=== PATIENT | female | born 1960 | race Caucasian/White ===

== ENCOUNTER 2024-08-02 22:02 | Emergency (ER) | payer BC, OTHER ==
[2024-08-02] MEDS ORDERED: KETOROLAC 30 MG/ML INJ ONE (22:23)
[2024-08-02] MEDS ORDERED: ONDANSETRON 4 MG/2 ML VIAL ONE (22:23)
[2024-08-02] MEDS ORDERED: NA CHLORIDE 0.9% 1,000 ML ONE (22:24)
[2024-08-02] MEDS ORDERED: MORPHINE 4 MG/ML SYR ONE (22:24)
--- NOTE | 2024-08-02 22:36 | RAD REPORT ---
EXAMINATION: CT HEAD WITHOUT CONTRAST CT CERVICAL SPINE WITHOUT CONTRAST CLINICAL INDICATION: Female, 64 years old. TRAUMA TECHNIQUE: Axial CT images from the skull base to the vertex without intravenous contrast. Axial CT i mages through the cervical spine were obtained without intravenous contrast. Sagittal and coronal reformatted images were created from the data set. Coronal and sagittal reformatted images were creat ed from the data set. One or more of the following dose reduction techniques were used: Automated exposure control, adjustment of the mA and/or kV according to patient size, and/or iterative reconstr uction. Unless otherwise specified, incidental findings do not require dedicated imaging follow-up. [id number]. COMPARISON: No prior exam. FINDINGS: Head: INTRACRANIAL: No acute intracranial hemorrhage. No hydrocephalus. No mass effect or midline shift. Mi ld chronic small vessel ischemic changes.Mild cerebral atrophy. VASCULATURE: No visualized abnormalities in the arteries or dural venous sinuses. SCALP/SKULL: No significant soft tissue or osseous abnormalities. SINUSES: The visualized paranasal sinuses and mastoid air cells are predominantly clear. Cervical spine: ALIGNMENT: Reversal the normal cervical lordosis. BONE: Vertebral body heights are maintained. No aggressive osseous lesions. DEGENERATIVE CHANGES: Multilevel cervical spondylosis with varying degrees of neural foraminal narrow ing. This is most pronounced on the right at C5-6 and C6-7 and on the left at C4-5. SOFT TISSUE: No significant abnormalities in the soft tissue of the neck. The visualized lung apices are clear. IMPRESSION: No acute intracranial abnormality. No acute fracture or traumatic malalignment of the cervical spine.
--- NOTE | 2024-08-02 22:41 | RAD REPORT ---
EXAM: CT CHEST, ABDOMEN AND PELVIS WITHOUT CONTRAST CLINICAL INDICATION: Female, 64 years old left shoulder pain TECHNIQUE: CT chest, abdomen and pelvis was performed, without IV contrast, as per department protoco l. Axial, sagittal and coronal reconstructions were obtained. One or more of the following dose reduction techniques were used: Automated exposure control, adjustment of the mA and/or kV according to the patient size, and/or iterative reconstruction. Unless otherwise specified, incidental findings do not require dedicated imaging follow-up. [id number]. COMPARISON: No prior exam. FINDINGS: The lack of intravenous contrast limits the sensitivity of this exam for evaluation of solid visceral organs, vascular structures, and retroperitoneum. Chest: LOWER NECK: Visualized thyroid gland and soft tissues are normal. LUNGS AND AIRWAYS: Calcified left lower lobe pulmonary nodules.No suspicious and/or stable pulmonary nodules. PLEURA: No pleural effusion. No pneumothorax. Hemidiaphragms are normally positioned. MEDIASTINUM AND LYMPH NODES: No mediastinal mass or fluid collection. Normal size mediastinal, hilar, and axillary lymph nodes. Small hiatal hernia. THORACIC AORTA: No thoracic aortic aneurysm. PULMONARY ARTERIES: Caliber is within normal limits. HEART: Normal heart size. Coronary arterial calcifications are present.No significant pericardial eff usion. Abdomen/Pelvis UPPER GI: No significant abnormality. LIVER: No significant focal abnormality. GALLBLADDER/BILE DUCTS: No biliary ductal dilatation.? PANCREAS: No mass, ductal dilation, or amie-pancreatic fluid. SPLEEN: Unremarkable. ADRENALS: No adrenal masses. KIDNEYS AND URETERS: No hydronephrosis.No suspicious renal mass. ABDOMINAL AORTA AND OTHER VESSELS: Normal caliber aorta and IVC. PERITONEUM: No abnormal free fluid. No free air. LYMPH NODES: No pathologic lymphadenopathy. ABDOMINAL WALL: Unremarkable SMALL BOWEL/COLON: Small bowel has normal course and caliber. No colonic wall thickening or pericolon ic inflammatory changes. Severe diverticulosis without diverticulitis. URINARY BLADDER: Underdistended but grossly unremarkable. REPRODUCTIVE ORGANS: No pathologic process. MUSCULOSKELETAL: Mildly comminuted left proximal humerus fracture. This involves the surgical neck an d both greater and lesser tuberosity. No other evidence of significant trauma is identified. ADDITIONAL FINDINGS: None. IMPRESSION: Mildly comminuted left proximal humerus fracture. No other evidence of significant trauma identified. .
--- NOTE | 2024-08-03 00:04 | ER ---
Nurse's Notes [facility] Name: Keira Adam Age: 64 yrs Sex: Female : 1960 Arrival Date: 08/02/2024 Time: 22:02 Bed 20 Private MD: Diagnosis: Fracture of upper end of humerus;Acute left proximal humerus fracture through surgical neck of the humerus;Acute fall at home Presentation: 08/02 22:06 Chief complaint: EMS states: bystanders report pt was smoking out in the parking lot of a hotel when she fell from a standing position. C/o L upper arm/ shoulder pain. +etoh. Coronavirus screen: Client denies travel out of the [place] in the last 14 days. Ebola Screen: Patient denies exposure to infectious person. Patient denies travel to an Ebola-affected area in the 21 days before illness onset. Initial Sepsis Screen: Does the patient meet any 2 criteria? No. Patient's initial sepsis screen is negative. Does the patient have a suspected source of infection? No. Patient's initial sepsis screen is negative. Risk Assessment: Do you want to hurt yourself or someone else? Patient reports no desire to harm self or others. Onset of symptoms was August 02, 2024. Care prior to arrival: IV initiated. 20 GA, in the right antecubital area. 22:06 Method Of Arrival: EMS: [facility] 22:06 Acuity: JAMES 3 ss Historical: - Allergies: 22:09 No Known Allergies; ss - Home Meds: 22:09 None [Active]; ss - PMHx: 22:09 None; ss - PSHx: 22:09 "twisted bowels fixed by Dr. Kauffman"; ss - Infectious Disease History:: Denies. - Social history:: Smoking status: Patient reports the use of cigarette tobacco products, smokes one-half pack cigarettes per day. - Family history:: not pertinent. Screenin:10 [facility] [place] ED Fall Risk Assessment (Adult) History of falling in the last 3 months, jb4 including since admission Yes- single mechanical fall (1 pt) Confusion or Disorientation No (0 pts) Intoxicated or Sedated Yes (3 pts) Impaired Gait Yes (1 pt) Mobility Assist Device Used No (0 pt) Altered Elimination No (0 pt) Score/Fall Risk Level 3 or more points = High Risk Oriented to surroundings, Maintained a safe environment. Abuse screen: Denies threats or abuse. Nutritional screening: No deficits noted. Tuberculosis screening: No symptoms or risk factors identified. Assessment: 22:10 General: Appears in no apparent distress. uncomfortable, Behavior is calm, cooperative, jb4 appropriate for age. Pain: Complains of pain in Left shoulder Pain does not radiate. Pain currently is 10 out of 10 on a pain scale. Neuro: Level of Consciousness is awake, alert, obeys commands, Oriented to person, place, time, situation. Cardiovascular: Patient's skin is warm and dry. Respiratory: Airway is patent Respiratory effort is even, unlabored, Respiratory pattern is regular, symmetrical. GI: No signs and/or symptoms were reported involving the gastrointestinal system. : No signs and/or symptoms were reported regarding the genitourinary system. EENT: No signs and/or symptoms were reported regarding the EENT system. Derm: Skin is pink, warm \\T\\ dry. Musculoskeletal: Circulation, motion, and sensation intact. Range of motion: limited in left shoulder. Injury Description: Abrasion sustained to chin. 23:00 Reassessment: Patient appears in no apparent distress at this time. Patient and/or jb4 family updated on plan of care and expected duration. Pain level reassessed. Patient is alert, oriented x 3, equal unlabored respirations, skin warm/dry/pink. 08/03 00:00 Reassessment: Patient appears in no apparent distress at this time. Patient and/or jb4 family updated on plan of care and expected duration. Pain level reassessed. Patient is alert, oriented x 3, equal unlabored respirations, skin warm/dry/pink. Vital Signs: 08/02 22:06 BP 110 / 61; Pulse 77; Resp 16; Temp 98.1(O); Pulse Ox 100% on R/A; Weight 49.9 kg; ss Height 5 ft. 6 in. ; Pain 10/10; 22:06 Body Mass Index 17.75 (49.90 kg, 167.64 cm) 22:06 Pain Scale: Adult ss Phoenix Coma Score: 08/03 03:23 Eye Response: spontaneous(4). Motor Response: obeys commands(6). Verbal Response: sp4 oriented(5). Total: 15. ED Course: 08/02 22:05 Patient arrived in ED. ss 22:05 Drake Marie MD is Attending Physician. sp4 22:09 Triage completed. ss 22:09 Arm band placed on right wrist. ss 22:10 Patient has correct armband on for positive identification. Bed in low position. Call jb4 light in reach. Side rails up X 1. Provided Education on: plan of care. 22:26 CT Head C Spine In Process Unspecified. EDMS 22:27 CT Chest Abdomen Pelvis W/O Contrast In Process Unspecified. EDMS 22:47 Shoulder Left (2 View) XRAY In Process Unspecified. EDMS 02 00:00 No provider procedures requiring assistance completed. IV discontinued, intact, jb4 bleeding controlled, No redness/swelling at site. Pressure dressing applied. 00:02 Kanu Tenorio MD is Referral Physician. sp4 Administered Medications: 08/02 22:53 Drug: morphine IVP or IV 4 mg IVP once over 4 mins Route: IVP; Infused Over: 4 mins; jb4 Site: right antecubital; 23:30 Follow up: Response: No adverse reaction; Marked relief of symptoms jb4 22:53 Drug: Ondansetron IVP 4 mg IVP once; over 2 minutes Route: IVP; Site: right antecubital;jb4 23:30 Follow up: Response: No adverse reaction; Marked relief of symptoms jb4 22:53 Drug: Ketorolac IVP 30 mg IVP once Route: IVP; Site: right antecubital; jb4 23:30 Follow up: Response: No adverse reaction; Marked relief of symptoms jb4 22:53 Drug: NS 0.9% IV 1000 ml IV at 1000 ml once; to be given as a bolus over 60 minutes jb4 Route: IV; Rate: 1000 ml; Site: right antecubital; 08/03 00:13 Follow up: IV Status: Pt discharged; IV Intake: 900ml jb4 00:12 Drug: HYDROcodone-acetaminophen PO 5 mg-325 mg 2 tabs PO once Route: PO; jb4 00:13 Follow up: Response: Medication administered at discharge. jb4 00:12 Drug: Ibuprofen PO 800 mg PO once Route: PO; jb4 00:14 Follow up: Response: Medication administered at discharge. jb4 00:12 Drug: Ondansetron PO 4 mg PO once Route: PO; jb4 00:13 Follow up: Response: Medication administered at discharge. jb4 Medication: 00:00 VIS not applicable for this client. jb4 Intake: 00:13 IV: 900ml; Total: 900ml. jb4 Outcome: 00:04 Discharge ordered by . sp4 00:30 Discharged to home via wheelchair, with friend, jb4 00:30 Condition: stable 00:30 Discharge instructions given to patient, family, Instructed on discharge instructions, follow up and referral plans. no drinking with medication, no driving heavy equipment, medication usage, Demonstrated understanding of instructions, follow-up care, medications, wound care, Prescriptions given X 4, 00:33 Patient left the ED. jb4 Signatures: Dispatcher [employer] EDMS Christine Rm RN RN Paolo Daniels RN RN jb4 Drake Marie MD MD sp4 Corrections: (The following items were deleted from the chart) 00:13 00:13 IV Status: Pt discharged jb4 jb4
--- NOTE | 2024-08-03 00:04 | EDPHYS ---
Physician Documentation [facility] Name: Keira Adam Age: 64 yrs Sex: Female : 1960 Arrival Date: 08/02/2024 Time: 22:02 Bed 20 Private MD: ED Physician Drake Marie HPI: 08/02 22:06 This 64 yrs old Female presents to ER via Unassigned with complaints of fall, sp4 intoxication . 08/03 03:23 64-year-old female presents with complaint of acute intoxication and acute fall at home sp4 with moderate to severe left shoulder pain. . Historical: - Allergies: 08/02 22:09 No Known Allergies; ss - Home Meds: 22:09 None [Active]; ss - PMHx: 22:09 None; ss - PSHx: 22:09 "twisted bowels fixed by Dr. Kauffman"; ss - Infectious Disease History:: Denies. - Social history:: Smoking status: Patient reports the use of cigarette tobacco products, smokes one-half pack cigarettes per day. - Family history:: not pertinent. ROS: 08/03 03:23 Constitutional: Negative for fever, chills, and weight loss, positive for acute sp4 intoxication, positive for fall, positive for left shoulder pain All other systems are negative, Exam: 03:23 Constitutional: This is a well developed, who is awake, thin appearing female, sp4 acutely intoxicated, c-collar in place, complaining of moderate to severe left shoulder pain Head/Face: Normocephalic, positive abrasion to the chin and submandibular location Eyes: Pupils equal round and reactive to light, extra-ocular motions intact. Lids and lashes normal. Conjunctiva and sclera are not injected. Cornea within normal limits. Periorbital areas with no swelling, redness, or edema. ENT: Nares patent. No nasal discharge, no septal abnormalities noted. Tympanic membranes are normal and external auditory canals are clear. Oropharynx with no redness, swelling, or masses, exudates, or evidence of obstruction, uvula midline. Mucous membranes moist. Neck: Trachea midline, no thyromegaly or masses palpated, and no cervical lymphadenopathy. Supple, full range of motion without nuchal rigidity, or vertebral point tenderness. Chest/axilla: Normal chest wall appearance and motion. Nontender with no deformity. No lesions are appreciated. Cardiovascular: Regular rate and rhythm with a normal S1 and S2. No gallops, murmurs, or rubs. Normal PMI, no JVD. No pulse deficits. Respiratory: Lungs have equal breath sounds bilaterally, clear to auscultation and percussion. No rales, rhonchi or wheezes noted. No increased work of breathing, no retractions or nasal flaring. Abdomen/GI: Soft, with normal bowel sounds. No distension or tympany. No guarding or rebound. No evidence of tenderness throughout. Back: No spinal tenderness. No costovertebral tenderness. Skin: Warm, dry with normal turgor. Normal color with no rashes, no lesions, and no evidence of cellulitis. MS/ Extremity: Pulses equal, no cyanosis. Neurovascular intact. Range of motion is decreased, there is moderate to severe tenderness left shoulder left proximal humerus also posterior left scapula. No deformity no signs of dislocation. Neurovascular status and pulses intact Neuro: Awake and alert, GCS 15, oriented to person, place, Cranial nerves II-XII grossly intact. Motor strength 5/5 in all extremities. Sensory grossly intact. Intoxication limits exam but no signs of lateralizing neurologic deficit Psych: Awake, alert, with orientation to person, place patient is intoxicated and emotionally upset Vital Signs: 08/02 22:06 BP 110 / 61; Pulse 77; Resp 16; Temp 98.1(O); Pulse Ox 100% on R/A; Weight 49.9 kg; ss Height 5 ft. 6 in. ; Pain 10/10; 22:06 Body Mass Index 17.75 (49.90 kg, 167.64 cm) 22:06 Pain Scale: Adult Phoenix Coma Score: 08/03 03:23 Eye Response: spontaneous(4). Motor Response: obeys commands(6). Verbal Response: sp4 oriented(5). Total: 15. Procedures: 03:27 Splinting: Splint applied to anterior aspect of left shoulder and left bicep using sp4 sling, applied by myself. Examined by me, post splint application: neurovascular intact, 2+ distal pulses palpable, brisk capillary refill noted, Patient tolerated well, Sling and swath was applied for initial shoulder immobilization. MDM: 02/02 22:08 Medical Screening Exam initiated sp4 23:44 ED course: EXAM DESCRIPTION: Shoulder Left 2+ Views CLINICAL HISTORY: 64 years Female, sp4 shoulder pain COMPARISON: None. FINDINGS: There is an acute, mildly comminuted, mildly displaced fracture of the left humeral head and neck. No definite dislocation. Acromioclavicular and coracoclavicular intervals appear normal. Left lung appears clear. Probable small granuloma in the left lower lung zone noted. Surrounding soft tissues are unremarkable. IMPRESSION: Acute fracture of the left humeral head and neck.. ED course: COMPARISON: No prior exam. FINDINGS: Head: INTRACRANIAL: No acute intracranial hemorrhage. No hydrocephalus. No mass effect or midline shift. Mild chronic small vessel ischemic changes.Mild cerebral atrophy. VASCULATURE: No visualized abnormalities in the arteries or dural venous sinuses. SCALP/SKULL: No significant soft tissue or osseous abnormalities. SINUSES: The visualized paranasal sinuses and mastoid air cells are predominantly clear. Cervical spine: ALIGNMENT: Reversal the normal cervical lordosis. BONE: Vertebral body heights are maintained. No aggressive osseous lesions. DEGENERATIVE CHANGES: Multilevel cervical spondylosis with varying degrees of neural foraminal narrowing. This is most pronounced on the right at C5-6 and C6-7 and on the left at C4-5. SOFT TISSUE: No significant abnormalities in the soft tissue of the neck. The visualized lung apices are clear. IMPRESSION: No acute intracranial abnormality. No acute fracture or traumatic malalignment of the cervical spine. . ED course: EXAM: CT CHEST, ABDOMEN AND PELVIS WITHOUT CONTRAST CLINICAL INDICATION: Female, 64 years old left shoulder pain TECHNIQUE: CT chest, abdomen and pelvis was performed, without IV contrast, as per department protocol. Axial, sagittal and coronal reconstructions were obtained. One or more of the following dose reduction techniques were used: Automated exposure control, adjustment of the mA and/or kV according to the patient size, and/or iterative reconstruction. Unless otherwise specified, incidental findings do not require dedicated imaging follow-up. [id number]. COMPARISON: No prior exam. FINDINGS: The lack of intravenous contrast limits the sensitivity of this exam for evaluation of solid visceral organs, vascular structures, and retroperitoneum. Chest: LOWER NECK: Visualized thyroid gland and soft tissues are normal. LUNGS AND AIRWAYS: Calcified left lower lobe pulmonary nodules.No suspicious and/or stable pulmonary nodules. PLEURA: No pleural effusion. No pneumothorax. Hemidiaphragms are normally positioned. MEDIASTINUM AND LYMPH NODES: No mediastinal mass or fluid collection. Normal size mediastinal, hilar, and axillary lymph nodes. Small hiatal hernia. THORACIC AORTA: No thoracic aortic aneurysm. PULMONARYARTERIES: Caliber is within normal limits. HEART: Normal heart size. Coronary arterial calcifications are present.No significant pericardial effusion. Abdomen/Pelvis UPPER GI: No significant abnormality. LIVER: No significant focal abnormality. GALLBLADDER/BILE DUCTS: No biliary ductal dilatation.? PANCREAS: No mass, ductal dilation, or amie-pancreatic fluid. SPLEEN: Unremarkable. ADRENALS: No adrenal masses. KIDNEYS AND URETERS: No hydronephrosis.No suspicious renal mass. ABDOMINAL AORTA AND OTHER VESSELS: Normal caliber aorta and IVC. PERITONEUM: No abnormal free fluid. No free air. LYMPH NODES: No pathologic lymphadenopathy. ABDOMINAL WALL: Unremarkable SMALL BOWEL/COLON: Small bowel has normal course and caliber. No colonic wall thickening or pericolonic inflammatory changes. Severe diverticulosis without diverticulitis. URINARYBLADDER: Underdistended but grossly unremarkable. REPRODUCTIVE ORGANS: No pathologic process. MUSCULOSKELETAL: Mildly comminuted left proximal humerus fracture. This involves the surgical neck and both greater and lesser tuberosity. No other evidence of significant trauma is identified. ADDITIONAL FINDINGS: None. IMPRESSION: Mildly comminuted left proximal humerus fracture. No other evidence of significant trauma identified.. . 08/03 03:27 Differential diagnosis: abrasion, closed head injury, contusion, fracture, laceration, sp4 multiple trauma, sprain, strain. Data reviewed: vital signs, nurses notes, EMS record, old medical records, radiologic studies, CT scan, plain films. Consideration of Admission/Observation Escalation of care including admission/observation considered. 03:30 ED course: Patient advised to see Dr. Kanu Tenorio for further treatment of the left sp4 proximal humerus fracture. 08/02 22:07 Order name: CT Head C Spine; Complete Time: 23:41 sp4 08/02 22:08 Order name: CT Chest Abdomen Pelvis W/O Contrast; Complete Time: 23:41 sp4 08/02 22:08 Order name: Shoulder Left (2 View) XRAY sp4 08/03 00:10 Order name: Sling: applied by MD; Complete Time: 00:12 sp4 Administered Medications: 08/02 22:53 Drug: morphine IVP or IV 4 mg IVP once over 4 mins Route: IVP; Infused Over: 4 mins; jb4 Site: right antecubital; 23:30 Follow up: Response: No adverse reaction; Marked relief of symptoms jb4 22:53 Drug: Ondansetron IVP 4 mg IVP once; over 2 minutes Route: IVP; Site: right antecubital;jb4 23:30 Follow up: Response: No adverse reaction; Marked relief of symptoms jb4 22:53 Drug: Ketorolac IVP 30 mg IVP once Route: IVP; Site: right antecubital; jb4 23:30 Follow up: Response: No adverse reaction; Marked relief of symptoms jb4 22:53 Drug: NS 0.9% IV 1000 ml IV at 1000 ml once; to be given as a bolus over 60 minutes jb4 Route: IV; Rate: 1000 ml; Site: right antecubital; 08/03 00:13 Follow up: IV Status: Pt discharged; IV Intake: 900ml jb4 00:12 Drug: HYDROcodone-acetaminophen PO 5 mg-325 mg 2 tabs PO once Route: PO; jb4 00:13 Follow up: Response: Medication administered at discharge. jb4 00:12 Drug: Ibuprofen PO 800 mg PO once Route: PO; jb4 00:14 Follow up: Response: Medication administered at discharge. jb4 00:12 Drug: Ondansetron PO 4 mg PO once Route: PO; jb4 00:13 Follow up: Response: Medication administered at discharge. jb4 Disposition: 03:31 Chart complete. sp4 Disposition Summary: 08/03/24 00:04 Discharge Ordered Notes: Location: Home sp4 Problem: new sp4 Symptoms: have improved sp4 Condition: Stable sp4 Diagnosis - Fracture of upper end of humerus sp4 - Acute left proximal humerus fracture through surgical neck of the humerus sp4 - Acute fall at home sp4 Followup: sp4 - With: Kanu Tenorio MD - When: 7 - 10 days - Reason: Recheck today's complaints Discharge Instructions: - Discharge Summary Sheet sp4 - Humerus Fracture Treated With Immobilization, [id number] sp4 Forms: - Patient Portal Instructions sp4 Prescriptions: - acetaminophen-codeine 300-60 mg Oral tablet - take 1 tablet ORAL route every 8 hours PRN pain; 20 tablet; Refills: 0, Product sp4 Selection Permitted - naproxen 500 mg Oral tablet - take 1 tablet ORAL route every 12 hours PRN pain; 50 tablet; Refills: 0, sp4 Product Selection Permitted - promethazine 25 mg Oral Tablet - take 1 tablet ORAL route every 6 hours As needed; 20 tablet; Refills: 0, sp4 Product Selection Permitted - methocarbamol 750 mg Oral tablet - take 1 tablet ORAL route every 6 hours for 2 days PRN pain; 60 tablet; Refills: sp4 0, Product Selection Permitted Signatures: Dispatcher [employer] Christine Chavez RN RN ss Paolo Lubin RN RN jb4 Drake Marie MD MD sp4
[2024-08-03] MEDS ORDERED: ONDANSETRON 4 MG (ODT) TAB ONE (00:08)
[2024-08-03] MEDS ORDERED: IBUPROFEN 400 MG TAB ONE (00:08)
[2024-08-03] MEDS ORDERED: HYDROCODONE/APAP 5/325 MG TAB ONE (00:08)
[2024-08-03 00:40] VITALS: BP 110/61; TEMP 98.1; O2SAT 100
--- NOTE | 2024-08-03 05:33 | RAD REPORT ---
EXAM DESCRIPTION: Shoulder Left 2+ Views CLINICAL HISTORY: 64 years Female, shoulder pain COMPARISON: None. FINDINGS: There is an acute, mildly comminuted, mildly displaced fracture of the left humeral head and neck. No definite dislocation. Acromioclavicular and coracoclavicular intervals appear normal. Left lung appears clear. Probable small granuloma in the left lower lung zone noted. Surrounding soft tissues are unremarkable. IMPRESSION: Acute fracture of the left humeral head and neck. Electronically signed by: Vincenzo Aguilar MD 08/02/2024 11:08 PM [facility] Due to temporary technical issues with the PACS/bigtincan reporting system, reports are being karen d by the in-house radiologist without review as a courtesy to ensure prompt reporting the interpreting radiologist is fully responsible for the content of the report. Transcribed Date/Time: 08/03/2024 5:33 AM
== END 2024-08-03 00:33 | disposition home or self-care (01) ==
LOC: ER 22:02
DX: S42.222A 2-part displaced fracture of surgical neck of left humerus, initial encounter for closed fracture (principal); W18.30XA Fall on same level, unspecified, initial encounter; Y92.009 Unspecified place in unspecified non-institutional (private) residence as the place of occurrence of the external cause
CPT/HCPCS: 96361; 70450; 71250; 72125; 74176; 73030; 96375; 96374; 99284; Q0162; J2405; J7030